=== PATIENT | male | born 2005 | race Caucasian/White ===

== ENCOUNTER 2024-12-06 20:53 | Emergency (ER) | payer OTHER, SELFPAY ==
[2024-12-06 20:59] VITALS: BP 133/77; PULSE 92; RESP 16; TEMP 36.7; O2SAT 97; BMI 25.1
--- OUTSIDE RECORDS SUMMARY | 2024-12-06 21:38 | XMS_ITS | Clinical Summary ---
Author Organization [facility] Address [address] [place] [address] Care Team Providers Care Academic Support Coordinator Name Role Phone Sherri Mueller MD Primary Care Provider [phone] Kylie Lundy MD Unavailable Unavailable Margarita Spears HOT SEALING MACHINE OPERATOR-[employer] Unavailable Unavail able Courtney Grace HOT SEALING MACHINE OPERATOR[employer] Unavailable [phone] Source Comments Some departments are not documenting in the electronic medical record. If you do not see the information that you expected, contact Release of Information in the Health Information Management department at [phone] for further assistance in locating additional records.[facility] Allergies No known active allergies Medications albuterol (VENTOLIN HFA, PROAIR HFA) 90 mcg/actuation inhaler Inhale 2 Puffs by mouth twice daily. Active fluticasone(+) (FLOVENT DISKUS) 100 mcg/actuation inhalation disk Inhale by mouth. Active ciprofloxacin 0.3%/dexameth 0.1% (CIPRODEX) 0.3-0.1 % otic suspensionIndica tions:Acute otitis externa of right ear, unspecified type Place 4 Drops in ear as directed twice daily. 1 Bottle 0 6 Active Active Problems Problem Noted Date Diagnosed Date Hx of tympanostomy tubes 03/11/2012 Perforation of ear drum 01/30/2012 Chronic otitis media 02/01/2011 Surgical History Surgery Date Site/Laterality Comments ADENOIDECTOMY 10/21/08 @ [facility] Dr. Kylie Lundy HX EAR TUBES 10/21/08 @ [facility] BMT Dr. Kylie Lundy MYRINGOPLASTY 12/06/11 @ [facility] Bilateral Removal with PP Dr. Kylie Lundy Medical History Medical History Date Comments Sinusitis 10/21/2008 Otitis media 10/21/2008 Hearing loss, conductive 12/20/2009 Headache(784.0) 07/18/2010 Asthma Generalized headaches Seasonal allergic reaction Family History Medical History Relation Comments Allergy-severe Father Asthma Father High Cholesterol Father Asthma Mother Relation Status Comments Father Alive Maternal Grandfather Alive Maternal Grandmother Alive Mother Alive Paternal Grandfather Paternal Grandmother Alive Social History Tobacco Use Types Packs/Day Years Used Date Smoking Tobacco: Never Assessed Alcohol Use Standard Drinks/Week Comments No 0 (1 standard drink = 0.6 oz pur e alcohol) Sex and Gender Information Value Date Recorded Sex Assigned at Not on file Legal Sex Male 6:08 PM CDT Gender Identity Not on file Sexual Orientation Not on file Obstetrics History Last Filed Vital Signs Vital Sign Reading Time Taken Comments Blood Pressure 113/90 10/09/2015 6:20 PM MEDICAL SURGERY NURSE Pulse 112 05/06/2016 9:08 AM CDT Temperature 37.2 C (99 F) 05/06/2016 9:08 AM CDT Respiratory Rate 16 05/06/2016 9:08 AM CDT Oxygen Saturation 97% 05/06/2016 9:08 AM CDT Inhaled Oxygen Concentration - - Weight 39.9 kg (88 lb) 05/06/2016 9:08 AM CDT Height 151.1 cm (4' 11.5) 05/06/2016 9:08 AM CD T Body Mass Index 17.48 05/06/2016 9:08 AM CDT Plan of Treatment Health Maintenance Due Date Last Done Comments HIV SCREENING 11/06/2019 HPV VACCINES (1 - Male 3-dos e series) 11/06/2019 MENINGOCOCCAL B VACCINE (1 o f 2 - Standard) 2020 DTAP/TDAP VACCINES (1 - Tdap) 2022 HEPATITIS C SCREENING 2022 PHYSICAL (COMPREHENSIVE) EXAM 2022 COVID-19 VACCINE (1 - 2023-2 5 season) 2024 DEPRESSION SCREENING 09/01/2024 INFLUENZA VACCINE (Season Ended) 2025 MENINGOCOCCAL VACCINE (ACWY,Menactra) Aged Out No longer eligible b ased on patient's age to complete this topic PNEUMOCOCCAL VACCINE Aged Out No long er eligible based on patient's age to complete this topic Insurance [facility] CHOICE/CHOICE PLUS [facility] CHOICE/CHOICE PLUS Care Teams Academic Support Coordinator Relationship Specialty [place] [id number] [facility] [address] [place], [place] [id number] PCP - General Pediatrics 08/12/11 Kylie Lundy MD [address] [facility] [place] [address] [place] [address] Otolaryngology 03/11/12 Margarita Spears APRN-[employer] Forwarding Address Unknown Nurse Practitioner 08/07/14 Courtney Grace APRN-NP [id number] [place] [address] Nurse Practitioner 05/06/16
--- NOTE | 2024-12-06 21:52 | ED.WOUNDLAC ---
HPI - Wound/Laceration General Date Seen: 12/06/24 Chief Complaint: Laceration/Wound Stated Complaint: Laceration L Thumb Time Seen by Provider: 12/06/24 21:05 Source: patient Mode of arrival: ambulatory Limitations: no limitations History of Present Illness HPI narrative: Patient is a 19-year-old male presenting to the emergency department after cutting the tip of his left thumb. States he grabbed a shower cavity when his finger got caught on his shaver. Denies any other injuries. States he is up-to-date on his tetanus. No other concerns noted. Related Data Home Medications ?Medication ?Instructions ?Recorded ?Confirmed albuterol sulfate .ROUTE 12/06/24 sertraline 100 mg tablet 100 mg PO Q24H 12/06/24 12/06/24 Allergies Allergy/AdvReac Type Severity Reaction Status Date / Time shellfish derived Allergy Severe Verified 12/06/24 21:01 latex AdvReac Verified 12/06/24 21:01 Review of Systems Narrative: Pertinent systems reviewed and were negative unless stated in HPI PFSH PFSH Social History Smoking Status: Never smoker How often do you have a drink containing alcohol: never AUDIT-C Alcohol total score: 0 Non-prescribed substance use: denies use Exam Narrative: Exam Narrative: Const: Well-nourished, Well-developed, in mild distress Eyes: PERRL, no conjunctival injection, and symmetrical lids HENT: Atraumatic external nose and ears. Moist mucous membranes. MSK:Extremities w/o deformity, Normal Active ROM Skin: Warm, Dry. Small abrasion to tip of left thumb with active oozing bleeding Neuro: Normal Muscle tone, No focal neurological deficits. Psych: Awake, Alert, & Oriented x3. Appropriate mood and affect. Const: Vital Signs, click to edit/add: Vital Signs - 24 hr 12/06/24 20:59 Temperature 98.1 F Pulse Rate [Pulse Oximeter] 92 Respiratory Rate 16 Blood Pressure [Ri ght Upper Arm] 133/77 Pulse Oximetry 97 Oxygen Delivery Me thod Room Air Course Vital Signs Vital signs: Initial Vital Signs Temperature 98.1 F 12/06/24 20:59 Temperature Source Temporal Artery Scan 12/06/24 20:59 Pulse Rate 92 12/06/24 20:59 Respiratory Rate 16 12/06/24 20:59 Blood Pressure 133/77 12/06/24 20:59 Blood Pressure Mean 95 12/06/24 20:59 Blood Pressure Position Sitting 12/06/24 20:59 Pulse Oximetry 97 12/06/24 20:59 Oxygen Delivery Method Room Air 12/06/24 20:59 Vital Signs Temperature 98.1 F 12/06/24 20:59 Pulse Rate 92 12/06/24 20:59 Respiratory Rate 16 12/06/24 20:59 Blood Pressure 133/77 12/06/24 20:59 Pulse Oximetry 97 12/06/24 20:59 Oxygen Delivery Method Room Air 12/06/24 20:59 Temperature 98.1 F 12/06/24 20:59 Pulse Rate 92 12/06/24 20:59 Respiratory Rate 16 12/06/24 20:59 Blood Pressure 133/77 12/06/24 20:59 Pulse Oximetry 97 12/06/24 20:59 Oxygen Delivery Method Room Air 12/06/24 20:59 MDM - Wound/Laceration MDM Narrative Medical decision making narrative: Patient is a 19-year-old male presenting for laceration to his left thumb. Initially was difficult to evaluate because he was tender to the touch. Did do a nerve block with lidocaine to like it better evaluation. There really wash the area. On further evaluation it does appear that the skin is avulsed in it is not amendable to suturing. Is relatively small area about half a cm in size. Will put on surgical foam and wrapped the area. He will be discharged. Discharge Plan Discharge Clinical Impression: Avulsion of skin Patient Disposition: Home, Self-Care Condition: Stable Instructions: Skin Avulsion (ED) Additional Instructions: Keep the wrapping insert formalin for the next 1-2 days. Bleeding should does subside shortly. Try and keep the area covered for the next week to protected while it is healing. Prescriptions: No Action sertraline 100 mg tablet 100 mg PO Q24H albuterol sulfate .ROUTE Follow Up/Referrals: Provider,Not a Local [Primary Care Provider] - Stand Alone [facility]: [facility] Inst[facility]
== END 2024-12-06 22:06 | disposition home or self-care (01) ==
PROVIDERS: Emergency Provider Student in an Organized Health Care Education/Training Program
DX: S61.012A Laceration without foreign body of left thumb without damage to nail, initial encounter (principal); W26.9XXA Contact with unspecified sharp object(s), initial encounter
CPT/HCPCS: 99283